=== PATIENT | male | born 1990 | race Caucasian/White ===

== ENCOUNTER 2019-03-06 08:11 | Day surgery (SDC) | payer OTHER ==
[2019-03-06] VITALS (9 sets, daily range): BP systolic 109–120; BP diastolic 57–68; PULSE 67–84; RESP 16–20; Ht 185.4 cm; Wt 60.0 kg
[~2019-03-06] VITALS: Ht 185.4 cm; Wt 60.0 kg
--- NOTE | 2019-03-06 10:22 | PREAC ---
Date/Time of Note Date/Time of Note DATE: 03/06/19 TIME: 10:21 Anesthesia Eval and Record Evaluation Time Pre-Procedure Interview DATE: 03/06/19 TIME: 10:21 Age 28 Sex male NPO: 8 hrs Preoperative diagnosis posterior scalp mass X 3 Planned procedure excision of posterior scalp mass X 3 Past Medical History Past Medical History: Includes Recreational drugs: Marijuana (last use 03/04) Surgery & Anesthesia Issues No known issue Meds Anticoagulation: No Beta Valeria within 24 hr: No Reason Beta Valeria not given: Pt. not on B-Valeria No Active Prescriptions or Reported Meds Meds reviewed: Yes Allergies Coded Allergies: No Known Allergy (Unverified , 03/06/19) Allergies Reviewed: Yes Labs/Studies Labs Reviewed: Other (none) test: N/A Pre-procedure Exam Airway: Adequate mouth opening, Adequate thyromental dist Mallampati: Mallampati II Teeth: Normal Lung: Normal Heart: Normal ASA Physical Status ASA physical status: 1 Emergency: None Planned Anesthetic General/MAC: LMA Planned Pain Management Parenteral pain med, Local by surgeon Pre-operative Attestations Prior to commencing anesthesia and surgery, the patient was re-evaluated, there was verification of: *The patient's identity *The results of appropriate recent lab work and preoperative vital signs *The above evaluation not changing prior to induction *Anesthetic plan, risk benefits, alternative and complications discussed with patient/family; questions answered; patient/family understands, accepts and wishes to proceed. ROHAN ANDERSON Mar 06, 2019 10:22
[2019-03-06] MEDS ORDERED: FENTAnyl 50 MCG/ML VIAL ONE (10:24)
[2019-03-06] MEDS ORDERED: PROPOFOL 20 ML ONE (10:25)
[2019-03-06] MEDS ORDERED: LIDOCAINE 2% (SDV) 5 ML INJ ONE (10:25)
[2019-03-06] MEDS ORDERED: CEFAZOLIN 1 GM INJ ONE (10:25)
[2019-03-06] MEDS ORDERED: BUPIVACAINE 0.25%/EPI (SDV) 30 ML INJ ONE (10:26)
[2019-03-06] MEDS ORDERED: FENTAnyl 50 MCG/ML VIAL IV PRN ×3 (10:30)
[2019-03-06] MEDS ORDERED: MEPERIDINE 25 MG INJ IV PRN (10:30)
[2019-03-06] MEDS ORDERED: ONDANSETRON 4 MG INJ IV PRN (10:30)
[2019-03-06] MEDS ORDERED: OXYCODONE/ACETAMINOPHEN (5/325) TAB PO PRN ×2 (10:30)
[2019-03-06] MEDS ORDERED: DEXAMETHASONE 4 MG/ML 5 ML INJ ONE (11:22)
[2019-03-06] MEDS ORDERED: METOCLOPRAMIDE 10 MG INJ ONE (11:22)
[2019-03-06] MEDS ORDERED: ONDANSETRON 4 MG INJ ONE (11:22)
--- NOTE | 2019-03-06 11:57 | OPR ---
Date/Time of Note Date/Time of Note DATE: 03/06/19 TIME: 11:53 Operative Report Procedure Date: Mar 06, 2019 Preoperative Diagnosis posterior scalp mass x 3 Postoperative Diagnosis same Operation/Procedure Performed 1. excision of right upper posterior scalp mass 2 cm mass 2 cm incision 2. localized adjacent tissue transfer with the use of skin flaps 4 sq cm defect of scalp 3. excision of left upper posterior scalp mass 2 cm mass 2 cm incision 4. localized adjacent tissue transfer with the use of skin flaps 4 sq cm defect of scalp 5. excision of posterior inferior scalp mass 2 cm mass 2 cm incision 6. localized adjacent tissue transfer with the use of skin flaps 4 sq cm defect of scalp 7. therapeutic injection of subcutaneous local anesthesia Surgeon see signature line [employer] Faculty Member none Anesthesia Type: general Estimated Blood Loss: 0 - 10 ml's Transfusion none Specimen right upper posterior scalp mass left upper posterior scalp mass posterior inferior scalp mass Grafts/Implants none Complications none Pt Condition Post Procedure: stable Indications This is a 28-year-old male with multiple scalp mass in the posterior aspect of the scalp. He request surgical excision of all the masses. Risks alternatives benefits and personal were discussed the patient. Patient expressed understanding and consents to the operation. Procedure Description Patient is taken to the OR and prepped and draped in usual sterile fashion. Surgical time was performed. IV antibiotics given. Transverse incision was made with a 15 blade over the right upper posterior scalp mass. Dissection with cautery skin onto the mass and the mass was circumferentially excised. Good he mostasis was established. Due to the tissue defect localization just transfer with these of skin flaps was performed. Multilayer closed with interrupted 0 Vicryl and running 4-0 Monocryl. Attention was then paid to the left upper posterior scalp mass. Transverse incision was made with a 15 blade. Dissection with cautery skin onto the mass and the mass was circumferentially excised. Good hemostasis status. Due to tissue defect localization just transfer with these of skin flaps was performed. Multilayer closure with interrupted 3-0 Vicryl and running 4-0 Monocryl. Attention was then paid to the posterior inferior scalp mass. Transverse incision was made with a 15 blade. Dissection with cautery skin onto the mass. Mass is excised in good hemostasis status. Due to tissue defect localization just transfer with use of skin flaps performed. Multilayer closed with interrupted 0 Vicryl and running 4-0 Monocryl. Therapeutic contains local anesthesia was injected to all incision sites. Dermabond was applied. Jazmine PATEL Mar 06, 2019 11:57
[2019-03-06] MEDS ORDERED: HYDROCODONE/APAP (5/325) TAB PO ONE (12:00)
--- NOTE | 2019-03-06 13:18 | PAC ---
Date/Time of Note Date/Time of Note DATE: 03/06/19 TIME: 13:18 Post-Anesthesia Notes Post-Anesthesia Note Last documented vital signs Vital Signs Date Temp Pulse Resp B/P (MAP) Pulse Ox O2 O2 Flow FiO2 Time Delivery Rate 03/06/19 76 17 115/66 95 Room Air 12:35 (82) 03/06/19 98.2 12:02 Activity: WNL Respiratory function: WNL Cardiovascular function: WNL Mental status: Baseline Pain reasonably controlled: Yes Hydration appropriate: Yes Nausea/Vomiting absent: Yes ROHAN ANDERSON Mar 06, 2019 13:18
== END 2019-03-06 13:47 | disposition home or self-care (01) ==
LOC: SDS 08:11
PROVIDERS: ATTEND Surgery
DX: L72.11 Pilar cyst (principal)
CPT/HCPCS: 14021; 88307; J0690; J1100; J2175; J2405; J2765; J3010; Z7512; Z7610